=== PATIENT | female | born 1945 | race Caucasian/White ===

== ENCOUNTER → 2018-07-03 | Emergency (ER) | payer MEDICARE ==
[~2018-07-03] VITALS: Ht 154.9 cm; Wt 68.2 kg
[~2018-07-03] MED LIST: ALA PO; ASCO500C12 PO; BACL20TA PO; CA C1TAB89 PO; CHOL10008 PO; CINN500C15 PO; DEXL60CA3 PO; ESTR0.3T3 PO; FURO40TA4 PO; GLUC-192 PO; GLUT25PO4 PO; KRIL1CAP19 PO; LACT1CAP67 PO; LEVO50TA8 PO; LORA0.5T PO; MAGN250T29 PO; MEDR2.5T7 PO; MILK175C5 PO; MULT-1096 PO; MULT1TAB74 PO; POTA-82 PO; RESV250C2 PO; SOLI10TA2 PO; UBID100C16 PO; VALA-7 PO
[2018-07-03 13:00] VITALS: BP 166/73
== END | disposition home or self-care (01) ==
LOC: ER 12:49
DX: M25.562 Pain in left knee (principal); K21.9 Gastro-esophageal reflux disease without esophagitis; Z88.0 Allergy status to penicillin; Z79.899 Other long term (current) drug therapy
CPT/HCPCS: 99284

== ENCOUNTER 2019-09-14 10:29 | Emergency (ER) | payer MEDICARE ==
[~2019-09-14] VITALS: Ht 154.9 cm; Wt 67.0 kg
[2019-09-14 10:33] VITALS: BP 138/69
== END 2019-09-14 13:17 | disposition home or self-care (01) ==
LOC: ER 10:29
DX: B34.9 Viral infection, unspecified (principal); R05 Cough; R50.9 Fever, unspecified; K21.9 Gastro-esophageal reflux disease without esophagitis; Z88.0 Allergy status to penicillin; Z79.899 Other long term (current) drug therapy
CPT/HCPCS: 87502; 87503; 99283

== ENCOUNTER 2022-01-02 06:30 | Day surgery (SDC) | payer MEDICARE ==
[2022-01-02] VITALS (14 sets, daily range): BP systolic 133–163; BP diastolic 54–69
[~2022-01-02] VITALS: Ht 154.9 cm; Wt 61.3 kg
[~2022-01-02 06:30] MED LIST changes: -LACT1CAP67 PO; +LACT1CAP77 PO; -MULT-1096 PO; +MULT-1166 PO; +MULT-620 PO; -MULT1TAB74 PO
[2022-01-02] MEDS ORDERED: diphenhydrAMINE 25mg capsule PO PRN (06:50)
[2022-01-02] MEDS ORDERED: normal saline 1,000 ML IV SCH (06:50)
[2022-01-02] MEDS ORDERED: URSO300C2 PO (07:21)
[2022-01-02] MEDS ORDERED: PIRF267C2 PO (07:21)
[2022-01-02] MEDS ORDERED: EZET10TA48 PO (07:21)
[2022-01-02] MEDS ORDERED: VIBE75TA PO (07:21)
[2022-01-02] MEDS ORDERED: Biotin PO (07:25)
[2022-01-02] MEDS ORDERED: ESTR0.3T3 PO (07:25)
[2022-01-02] MEDS ORDERED: MEDR2.5T PO (07:25)
[2022-01-02 07:38] LABS: BASOPHILS # (AUTO) 0.1 X10'3 (0-0.2); EOSINOPHILS # (AUTO) 0.3 X10'3 (0-0.9); HEMATOCRIT 37.9 % (35.0-45.0); HEMOGLOBIN 12.9 g/dl (12.0-16.0); LYMPHOCYTES # (AUTO) 1.4 X10'3 (1.1-4.8); LYMPHOCYTES % (AUTO) 22.4 % (21-51); MEAN CORPUSCULAR HEMOGLOBIN 31.5 PG (27.0-31.0); MEAN CORPUSCULAR HGB CONC 34.1 g/dL (33.0-36.5); MEAN CORPUSCULAR VOLUME 92.3 FL (78-98); MEAN PLATELET VOLUME 6.9 FL (7.4-10.4); MONOCYTES # (AUTO) 0.5 X10'3 (0-0.9); MONOCYTES % (AUTO) 8.3 % (2-12); NEUTROPHILS # (AUTO) 3.8 X10'3 (1.8-7.7); NEUTROPHILS % (AUTO) 63.3 % (42-75); PLATELET COUNT 184 X10'3 (140-440); RED BLOOD COUNT 4.11 X10'6 (4.20-5.60); RED CELL DISTRIBUTION WIDTH 13.3 % (11.5-14.5); WHITE BLOOD COUNT 6.1 X10'3 (4.5-11.0)
[2022-01-02 07:54] LABS: ALBUMIN 2.8 G/DL (3.4-5.0); ANION GAP 9 (8-16); BLOOD UREA NITROGEN 14 MG/DL (7-18); BUN/CREATININE RATIO 17.1 (6.6-38.0); CALCIUM 8.8 MG/DL (8.5-10.1); CHLORIDE 109 MMOL/L (99-107); CREATININE 0.82 MG/DL (0.40-0.90); GLUCOSE 107 MG/DL (70-104); POTASSIUM 3.8 MMOL/L (3.5-5.1); SODIUM 143 MMOL/L (135-145); TOTAL CARBON DIOXIDE 25.3 MMOL/L (24-32); eGFR 67 ML/MIN
[2022-01-02] MEDS ORDERED: fentaNYL/PF 50MCG/1 ML 2ML syringe ONE ×2 (08:59→10:20)
[2022-01-02] MEDS ORDERED: heparin 1,000unit/ml 10ml vial 10 ML ONE (09:00)
[2022-01-02] MEDS ORDERED: LIDOcaine 1% 30ml preserv. free vial ONE (09:00)
[2022-01-02] MEDS ORDERED: iohexol 350MG/ML 100ml bottle IV ONE (09:00)
[2022-01-02] MEDS ORDERED: midazolam 1 mg/ML 2ml injection ONE ×3 (09:00→10:20)
[2022-01-02] MEDS ORDERED: proCHLORperazine 10 MG/2 ml inj ONE (09:25)
[2022-01-02] MEDS ORDERED: clopidogrel 300mg tablet ONE (11:05)
[2022-01-02] MEDS ORDERED: propranolol 10mg tablet PO ONE (11:35)
--- NOTE | 2022-01-02 11:35 | NUR ---
Phoned Karina, notified of pt DC home time.
--- NOTE | 2022-01-02 11:50 | NUR ---
Marky (orthodontic technician) at bedside fitting pt with straight leg immobilizer.
--- NOTE | 2022-01-02 15:00 | NUR ---
Friend Karina here written and verbal DC instructions given, both verbalize understanding. Pt amb to rest room gait steady, void in toilet. Right groin site stable, dressing CD&I. No bleeding, bruising or hematoma noted. PIV DC cath intact. Pt able to dress self. DC to home with all belongings with friend Karina. Pt able to transfer self to car.
== END 2022-01-02 16:00 | disposition home or self-care (01) ==
LOC: SSTAY O 06:30
PROVIDERS: ATTEND Internal Medicine Cardiovascular Disease
DX: I70.212 Atherosclerosis of native arteries of extremities with intermittent claudication, left leg (principal); Z79.899 Other long term (current) drug therapy; E78.00 Pure hypercholesterolemia, unspecified; Z82.49 Family history of ischemic heart disease and other diseases of the circulatory system; Z80.8 Family history of malignant neoplasm of other organs or systems; Z98.49 Cataract extraction status, unspecified eye; E03.9 Hypothyroidism, unspecified; Z98.890 Other specified postprocedural states; Z88.0 Allergy status to penicillin
CPT/HCPCS: 36415; 37226; 80048; 83735; 85025; 85610; 93005; 99152; 99153; C1725; C1760; C1769; C1876; C1894; C2623; J0780; J1644; J2250; J3010; J3490; J7030; Q0163; Q9967; A4620; A6258